=== PATIENT | female | born 1990 | race African-American/Black ===

== ENCOUNTER 2019-10-02 14:47 | Emergency (ER) | payer BC, OTHER ==
[2019-10-02] MEDS ORDERED: Ibuprofen 200 MG TAB ONE ×2 (15:33→15:35)
== END 2019-10-02 15:43 | disposition home or self-care (01) ==
LOC: ERS 14:47
DX: J11.1 Influenza due to unidentified influenza virus with other respiratory manifestations (principal); Z79.51 Long term (current) use of inhaled steroids
CPT/HCPCS: 87804; 99283